=== PATIENT | female | born 1960 | race African-American/Black ===

== ENCOUNTER 2017-01-06 21:13 | Emergency (ER) | payer SELFPAY ==
[~2017-01-06] VITALS: Ht 172.7 cm; Wt 117.5 kg
[~2017-01-06 21:13] MED LIST: BENZ100C PO; DOXY100C2 PO
[2017-01-06 21:30] VITALS: BP 222/96
[2017-01-06] MEDS ORDERED: METR500T8 PO (22:41)
--- NOTE | 2017-01-06 22:42 | PHYS DOC ---
Past Medical History Past Medical History: Diabetes-Type II, High Cholesterol, Hypertension Additional Past Medical Histor: TRICHOMONAS Past Surgical History: No Surgical History Alcohol Use: None Drug Use: None Adult General Chief Complaint Chief Complaint: VAGINAL PROBLEM HPI HPI Patient is a 56 year old female who states that she has a vaginal discharge and is concerned that she may have been exposed to a sexually transmitted infection. This has been going on for about 2 weeks, she had unprotected sex with a new partner at that time. She denies any urinary tract symptoms, denies fever or chills, denies vomiting. Review of Systems Review of Systems Constitutional: Denies fever or chills [] GI: Denies abdominal pain, nausea, vomiting, bloody stools or diarrhea [] : Denies dysuria or hematuria [] Current Medications Current Medications Current Medications Medications (Trade) Dose Ordered Sig/Kimberly Start Time Stop Time Status Last Admin Dose Admin Azithromycin (Zithromax) 1,000 mg 1X ONCE 01/06/17 22:45 01/06/17 22:46 Ceftriaxone Sodium (Rocephin Im) 250 mg 1X ONCE 01/06/17 22:45 01/06/17 22:46 Allergies Allergies Allergies Coded Allergies Type Severity Reaction Last Updated Verified Penicillins Allergy Intermediate 07/04/14 Yes Physical Exam Physical Exam Constitutional: Well developed, well nourished, no acute distress, non-toxic appearance. [] HENT: Normocephalic, atraumatic, bilateral external ears normal, nose normal. [ ] Eyes: conjunctiva normal, no discharge. [] Neck: Normal range of motion, no stridor. [] Pelvic exam: External genitalia normal. Vaginal vault with discharge present. Swabs were taken. No lesions noted. Skin: Warm, dry, no erythema, no rash. [] Extremities: No tenderness, no cyanosis, no clubbing, ROM intact, no edema. [] Neurologic: Alert and oriented X 3, normal motor function, normal sensory function, no focal deficits noted. [] Current Patient Data Vital Signs Vital Signs Date Time Temp Pulse Resp B/P (MAP) Pulse Ox O2 Delivery O2 Flow Rate FiO2 01/06/17 21:30 98.0 72 20 98 Room Air 98.0 Lab Values Microbiology 01/06/17 Wet Prep - Final, Complete EKG EKG [] Radiology/Procedures Radiology/Procedures [] Course & Med Decision Making Course & Med Decision Making Pertinent Labs and Imaging studies reviewed. (See chart for details) Wet prep positive for Trichomonas and clue cells. I advised the patient with being positive for Trichomonas that she can consider being treated for GC and chlamydia as well and she does want to do that. Patient was treated here with Rocephin and azithromycin, she will be treated with metronidazole for 7 days for Trichomonas and bacterial vaginosis. See instructions for plan. [] Dragon Disclaimer Dragon Disclaimer This electronic medical record was generated, in whole or in part, using a voice recognition dictation system. Departure Departure Impression: Primary Impression: Trichomonas vaginalis (TV) infection Additional Impression: Bacterial vaginosis Disposition: HOME, SELF-CARE Condition: STABLE Referrals: PAUL BARNETT MD (PCP) Patient Instructions: Bacterial Vaginosis, [id number], Trichomoniasis-Brief Additional Instructions: As we discussed, when you are exposed to one sexually transmitted infection such as Trichomonas, you may have been exposed to other ones. I sent tests for gonorrhea and chlamydia, but you have been treated for both of those already, in case your test does come back positive. Take metronidazole as prescribed, which will treat both Trichomonas and bacterial vaginosis. Use condoms for 2 weeks until your infections have cleared up, have your partners treated. Scripts Metronidazole (METRONIDAZOLE) 500 Mg Tablet 1 TAB PO BID for Trichomonas, bacterial vaginos, #14 TAB Prov: JONA ROME MD 01/06/17 Problem Qualifiers JONA ROME MD Jan 06, 2017 22:42
[2017-01-06] MEDS ORDERED: cefTRIAXone IM 250 MG VIAL IM ONE (22:45)
[2017-01-06] MEDS ORDERED: AZITHROMYCIN 250 MG TABLET. PO ONE (22:45)
== END 2017-01-06 22:57 | disposition home or self-care (01) ==
LOC: ER 21:13
DX: A59.01 Trichomonal vulvovaginitis (principal); E11.9 Type 2 diabetes mellitus without complications; I10 Essential (primary) hypertension; E78.00 Pure hypercholesterolemia, unspecified; Z88.0 Allergy status to penicillin
CPT/HCPCS: 87491; 87591; 96372; 99284; J0696; Q0111; Q0144

== ENCOUNTER 2019-05-20 22:51 | Emergency (ER) | payer OTHER ==
[~2019-05-20] VITALS: Ht 170.2 cm; Wt 145.5 kg
[~2019-05-20 22:51] MED LIST changes: +ALBU2.5V8 INH; +DOXY100T PO; +METR-34 PO
[2019-05-20] MEDS ORDERED: BENZ200C47 PO (23:24)
[2019-05-20] MEDS ORDERED: HYDR-2769 PO (23:24)
[2019-05-20] MEDS ORDERED: HYDR12.58 PO (23:25)
[2019-05-20] MEDS ORDERED: LISI30TA4 PO (23:25)
[2019-05-20] MEDS ORDERED: ALBU2.5V8 IH (23:26)
[2019-05-20] MEDS ORDERED: ALPR1TAB6 PO (23:26)
--- NOTE | 2019-05-21 00:19 | RAD ---
Supine abdomen. HISTORY: Constipation Supine view was taken of the abdomen. There is increased stool at the rectum. There is moderate stool throughout the rest of the colon. There is no small bowel obstruction. There is mild arthritis in the right hip. There is degenerative disc disease in the lumbar spine. IMPRESSION: 1. Increased stool at the colon and rectum. 2. No small bowel obstruction. Electronically signed by: Kevan Austin MD (05/21/2019 12:16 AM) [facility]
--- NOTE | 2019-05-21 01:03 | PHYS DOC ---
Past Medical History Past Medical History: Anxiety, Diabetes-Type II, High Cholesterol, Hypertension Additional Past Medical Histor: TRICHOMONAS,OBESITY,CHRONIC PAIN Past Surgical History: No Surgical History Alcohol Use: None Drug Use: None Adult General Chief Complaint Chief Complaint: CONSTIPATION HPI HPI 59-year-old female presents to the emergency Department complaints of constipation. Patient has a history of chronic narcotic use, states her last bowel movement was approximately 3 days ago. She denies any fever, nausea or vomiting. She does have some abdominal discomfort. His attempted multiple times bowel movement however has yet to have full bowel movement, she states she's get ting small amounts out. Nothing makes her discomfort better, nothing makes it worse. Patient has history of diabetes, hypertension, chronic pain. Review of Systems Review of Systems Constitutional: Denies fever or chills [] Respiratory: Denies cough or shortness of breath [] Cardiovascular: No additional information not addressed in HPI [] GI: + abdominal pain, constipation, no nausea, vomiting, bloody stools or diarrhea [] : Denies dysuria or hematuria [] Integument: Denies rash or skin lesions [] Neurologic: Denies headache, focal weakness or sensory changes [] All other systems were reviewed and found to be within normal limits, except as documented in this note. Allergies Allergies Allergies Coded Allergies Type Severity Reaction Last Updated Verified Penicillins Allergy Intermediate 07/04/14 Yes Physical Exam Physical Exam Constitutional: Well developed, well nourished, no acute distress, non-toxic appearance. [] HENT: Normocephalic, atraumatic, bilateral external ears normal, oropharynx moist, no oral exudates, nose normal. [] Eyes: PERRLA, EOMI, conjunctiva normal, no discharge. [] Cardiovascular:Heart rate regular rhythm, no murmur [] Lungs & Thorax: Bilateral breath sounds clear to auscultation [] Abdomen: Bowel sounds normal, soft, no tenderness, no masses, no pulsatile masses. [] Skin: Warm, dry, no erythema, no rash. [] Extremities: No tenderness, no edema. [] Neurologic: Alert and oriented X 3, no focal deficits noted. [] Psychologic: Affect normal, judgement normal, mood normal. [] Rectal - stool within rectal vault Current Patient Data Vital Signs Vital Signs Date Time Temp Pulse Resp B/P (MAP) Pulse Ox O2 Delivery O2 Flow Rate FiO2 1/22/20 23:21 98.4 78 20 169/71 (103) 95 Room Air 98.4 EKG EKG [] Radiology/Procedures Radiology/Procedures [facility] [address] [place] [address] IMAGING REPORT Signed PATIENT: LÓPEZ SUAREZ ACCOUNT: [id number] : 1960 LOCATION: ER AGE: 59 SEX: F EXAM STATUS: REG ER ORD. PHYSICIAN: JB BACK MD REASON: constipation PROCEDURE: KUB Supine abdomen. HISTORY: Constipation Supine view was taken of the abdomen. There is increased stool at the rectum. There is moderate stool throughout the rest of the colon. There is no small bowel obstruction. There is mild arthritis in the right hip. There is degenerative disc disease in the lumbar spine. IMPRESSION: 1. Increased stool at the colon and rectum. 2. No small bowel obstruction. Electronically signed by: Kevan Austin MD (05/21/2019 12:16 AM) [facility] DICTATED and SIGNED BY: KEVAN AUSTIN MD DATE: 05/21/19 0016 [] Course & Med Decision Making Course & Med Decision Making Pertinent Labs and Imaging studies reviewed. (See chart for details) []59-year-old female presents to the emergency Department complaints of constipation. Patient has a history of chronic narcotic use, states her last bowel movement was approximately 3 days ago. She denies any fever, nausea or vomiting. She does have some abdominal discomfort. His attempted multiple times bowel movement however has yet to have full bowel movement, she states she's getting small amounts out. Nothing makes her discomfort better, nothing makes it worse. Patient has history of diabetes, hypertension, chronic pain. KUB with evidence of impaction Milk of Molasses enema provided without significant relief Manual disimpaction attempted however patient went without intervention Recommend dc home and follow up as outpatient with PCP Leticia Disclaimer Dragon Disclaimer This electronic medical record was generated, in whole or in part, using a voice recognition dictation system. Departure Departure Impression: Primary Impression: Fecal impaction in rectum Disposition: HOME, SELF-CARE Condition: IMPROVED Referrals: MELISSA GARCIA (PCP) Patient Instructions: Fecal Impaction Additional Instructions: Recommend follow up with PCP 3 - 5 days Return to the ER with worsening symptoms, intractable pain, fever, altered mental status Tylenol/Motrin as needed for pain Recommend using colace and/or miralax over the counter to help with bowel ma JB Zelaya MD May 21, 2019 01:03
[2019-05-21 04:42] VITALS: BP 118/44
== END 2019-05-21 04:44 | disposition home or self-care (01) ==
LOC: ER 22:51
DX: K56.41 Fecal impaction (principal); Z88.0 Allergy status to penicillin; F41.9 Anxiety disorder, unspecified; E11.9 Type 2 diabetes mellitus without complications; E78.00 Pure hypercholesterolemia, unspecified; I10 Essential (primary) hypertension; E66.9 Obesity, unspecified; G89.29 Other chronic pain; Z68.43 Body mass index [BMI] 50.0-59.9, adult
CPT/HCPCS: 74018; 99284